=== PATIENT | female | born 1985 | race Caucasian/White ===

== ENCOUNTER 2017-03-28 18:56 | Emergency (ER) | payer OTHER ==
[2017-03-28 20:43] LABS: BASOPHIL % 0.5 % (0-2); PLATELET COUNT 357 x10^3mcL (130-400)
[2017-03-28 20:49] LABS: RED CELL DISTRIBUTION WIDTH 18.3 % (11.5-14.5)
[2017-03-28 21:36] VITALS: BP 133/91
== END 2017-03-28 21:36 | disposition home or self-care (01) ==
LOC: ED 18:56
PROVIDERS: Emergency Medicine
DX: N93.8 Other specified abnormal uterine and vaginal bleeding (principal); D64.9 Anemia, unspecified; N39.0 Urinary tract infection, site not specified
CPT/HCPCS: 36415; Q0162

== ENCOUNTER 2017-04-26 14:49 | Emergency (ER) | payer OTHER ==
[2017-04-26 15:49] VITALS: BP 123/68
== END 2017-04-26 16:54 | disposition left against medical advice (07) ==
LOC: ED 14:49
DX: Z53.21 Procedure and treatment not carried out due to patient leaving prior to being seen by health care provider (principal)